=== PATIENT | female | born 1950 | race Caucasian/White ===

== ENCOUNTER 2017-11-29 03:34 | Emergency (ER) | payer MEDICARE, OTHER ==
[2017-11-29] MEDS ORDERED: PROVENTIL 2.5 MG/3 ML NEB IH ONE (03:43)
[2017-11-29] MEDS ORDERED: DUONEB 0.5-3 MG/3 ml Neb IH ONE ×2 (03:47→03:52)
--- NOTE | 2017-11-29 04:05 | ERPHSYRPT ---
- History of Present Illness Time Seen by Provider: 11/29/17 03:50 Source: patient Exam Limitations: clinical condition Physician History: PATIENT WITH A HISTORY OF COPD, REACTIVE AIRWAY DISEASE COMPLAINS OF ACUTE ONSET OF DYSPNEA WHILE WALKING TO BATHROOM IN HOME, DIFFICULTY BREATHING. HAS A PRODUCTIVE COUGH. WAS GIVEN 2 SAMPLE INHALERS BY HER PICK OUT HAND WHICH SHE HAS NOT USED. PATIENT COMPLAINS OF ASSOCIATED DIAPHORESIS AND PALPITATIONS. Timing/Duration: hour(s) Activities at Onset: activity Severity of Dyspnea-Max: severe Severity of Dyspnea-Current: severe Possible Cause: no prior episodes Modifying Factors: Improves With: activity Associated Symptoms: cough, lightheadedness, dizziness Allergies/Adverse Reactions: levofloxacin Adverse Reaction (Verified 11/29/17 07:12) Hives Home Medications: Lisinopril 20 mg PO BID 11/29/17 [History] Propranolol HCl 80 mg PO DAILY 11/29/17 [History] Rosuvastatin Calcium 20 mg PO DAILY 11/29/17 [History] Sertraline HCl 75 mg PO DAILY 11/29/17 [History] - Review of Systems Constitutional: No Fever, No Chills Eyes: No Symptoms Ears, Nose, & Throat: No Symptoms Respiratory: Cough, Dyspnea, Dyspnea on Exertion (ARGUELLES) Cardiac: Palpitations, No Chest Pain, No Edema, No Syncope Abdominal/Gastrointestinal: No Symptoms, No Abdominal Pain, No Nausea, No Vomiting, No Diarrhea Genitourinary Symptoms: No Symptoms, No Dysuria Musculoskeletal: No Symptoms, No Back Pain, No Neck Pain Skin: No Rash Neurological: No Symptoms, No Dizziness, No Focal Weakness, No Sensory Changes Psychological: No Symptoms Endocrine: No Symptoms All Other Systems: Reviewed and Negative - Nursing Vital Signs Nursing Vital Signs: Initial Vital Signs Pulse Rate 109 H 11/29/17 03:48 Respiratory Rate 36 H 11/29/17 03:48 Blood Pressure 180/123 11/29/17 03:48 O2 Sat by Pulse Oximetry 93 L 11/29/17 03:48 Pain Scale Pain Intensity 0 - Physical Exam General Appearance: moderate distress, other (ARRIVES TO EMERGENCY ROOM VIA EMS WITH MODERATE TACHYPNEA, NO AUDIBLE WHEEZES OR RHONCHI.) Ears, Nose, Throat Exam: hearing grossly normal Neck Exam: non-tender, supple, JVD Respiratory Exam: diminished breath sounds, crackles/rales, wheezing, other ( DECREASED AIR EXCHANGE) Cardiovascular/Chest Exam: tachycardia, irregular Abdominal/Gastrointestinal Exam: soft, normal bowel sounds, other Extremity Exam: no pedal edema (2+ PITTING EDEMA) Peripheral Pulses Exam: carotid (L): 2+, femoral (R): 2+, femoral (L): 2+, dorsalis-pedis (R): 2+, dorsalis-pedis (L): 2+ Neurologic Exam: alert, oriented x 3 Skin Exam: normal color SpO2 Interpretation: borderline oxygenation SpO2: 93 Oxygen Delivery: Nasal Cannula - Course EKG Interpreted by Me: RATE, A-fib, NORMAL AXIS (RATE 108) - Radiology Exams Chest X-ray Interpretation: Interpreted by me (SITUS INVERSUS, INTERSTITIAL PULMONARY EDEMA, RIGHT INFRAHILAR INFILTRATE) Ordered Tests: Active Orders 24 hr Category Date Time Status Floor Clerk STAT Care 11/29/17 03:44 Active EKG-ER Only STAT Care 11/29/17 03:43 Active CHEST 1 VIEW (PORTABLE) Stat Exams 11/29/17 03:44 Completed BLOOD CULTURE Stat Lab 11/29/17 04:15 Received CBC W DIFF Stat Lab 11/29/17 04:15 Completed CMP Stat Lab 11/29/17 04:15 Completed D-DIMER QUANTITATION Stat Lab 11/29/17 04:15 Completed Lactic Acid Stat Lab 11/29/17 04:15 Completed Lactic Acid Stat Lab 11/29/17 06:36 Completed MAGNESIUM Stat Lab 11/29/17 04:15 Completed NT PRO BNP Stat Lab 11/29/17 04:15 Completed PROTIME WITH INR Stat Lab 11/29/17 04:15 Completed TROPONIN Q3H Lab 11/29/17 04:15 Completed TROPONIN Q3H Lab 11/29/17 07:15 Completed VENOUS BLOOD GAS Stat Lab 11/29/17 04:15 Completed Respiratory Nebulizer STAT RT 11/29/17 03:52 Completed Respiratory Therapy Assessment DAILY RT 11/29/17 03:57 Completed Medication Summary Discontinued Medications Generic Name Dose Route Start Last Admin Trade Name Freq PRN Reason Stop Dose Admin Albuterol Sulfate 2.5 mg 11/29/17 03:43 Proventil 2.5 Mg/3 Ml Neb IH 11/29/17 03:44 STAT ONE Albuterol/Ipratropium Confirm 11/29/17 03:47 Duoneb 0.5-3 Mg/3 Ml Neb Administered 11/29/17 03:48 Dose 3 ml IH .STK-MED ONE Albuterol/Ipratropium 3 ml 11/29/17 03:52 11/29/17 03:56 Duoneb 0.5-3 Mg/3 Ml Neb IH 11/29/17 03:53 3 ml STAT ONE Administration Diphenhydramine HCl Confirm 11/29/17 05:38 Benadryl 50 Mg/Ml Administered 11/29/17 05:39 Dose 50 mg .ROUTE .STK-MED ONE Diphenhydramine HCl 25 mg 11/29/17 05:42 11/29/17 06:17 Benadryl 50 Mg/Ml IV 11/29/17 05:43 25 mg STAT ONE Administration Enoxaparin Sodium 80 mg 11/29/17 04:26 11/29/17 04:30 Enoxaparin Sodium SQ 11/29/17 04:27 80 mg STAT ONE Administration Enoxaparin Sodium Confirm 11/29/17 04:29 Enoxaparin Sodium Administered 11/29/17 04:30 Dose 80 mg SQ .STK-MED ONE Furosemide 60 mg 11/29/17 04:18 11/29/17 04:31 Furosemide 100mg/10 Ml Vial IV 11/29/17 04:19 60 mg STAT ONE Administration Furosemide Confirm 11/29/17 04:26 Furosemide 100mg/10 Ml Vial Administered 11/29/17 04:27 Dose 100 mg .ROUTE .STK-MED ONE Diltiazem HCl 100 mls @ 10 mls/hr 11/29/17 04:25 11/29/17 04:53 Cardizem Drip 100 Mg/100 Ml D5w IV 12/29/17 04:24 10 mg/hr .Q10H PRN 10 mls/hr HEART RATE/ A-FIB Administration Protocol 10 MG/HR Levofloxacin/Dextrose 500 mg in 100 mls @ 100 mls/hr 11/29/17 05:14 11/29/17 05:19 Levofloxacin 500mg/100ml D5w IV 11/29/17 06:13 100 mls/hr STAT STA 100 mls/hr Administration Levofloxacin/Dextrose Confirm 11/29/17 05:16 Levofloxacin 500mg/100ml D5w Administered 11/29/17 05:17 Dose 500 mg in 100 mls @ ud IV .STK-MED ONE Diltiazem HCl Confirm 11/29/17 04:29 Cardizem Drip 100 Mg/100 Ml D5w Administered 11/29/17 04:30 Dose 100 mls @ ud IV .STK-MED ONE Lab/Rad Data: Laboratory Result Diagrams 11/29/17 04:15 11/29/17 04:15 Laboratory Results 11/29/17 11/29/17 11/29/17 Range/Units 07:15 06:36 04:15 WBC (4.0-10.5) K/mm3 RBC (4.1-5.4) M/mm3 Hgb (12.0-16.0) gm/dl Hct (35-47) % MCV (78-100) fl MCH (26-32) pg MCHC (32-36) g/dl RDW (11.5-14.0) % Plt Count (150-450) K/mm3 MPV (6-9.5) fl Gran % (36.0-66.0) % Eos # (Auto) (0-0.5) Absolute Lymphs (auto) (1.0-4.6) Absolute Monos (auto) (0.0-1.3) Lymphocytes % (24.0-44.0) % Monocytes % (0.0-12.0) % Eosinophils % (0.00-5.0) % Basophils % (0.0-0.4) % Absolute Granulocytes (1.4-6.9) Basophils # (0-0.4) PT (9.95-12.35) SECONDS INR (0.8-3.0) D-Dimer (215-500) ng/mL pO2/FiO2 Ratio % VBG pH (7.32-7.42) VBG pCO2 at Pat Temp (42-55) mm/Hg VBG pO2 at Pat Temp (25-40) mm/Hg VBG HCO3 (22-28) meq/L VBG O2 Sat (Arnie) (95-100) VBG Base Excess (-2.0-2.0) VBG Hemoglobin VBG Carboxyhemoglobin (0.0-6.9) % T HGB POC Potassium (3.5-5.1) Sodium (137-145) mmol/L Potassium (3.5-5.1) mmol/L Chloride (98-107) mmol/L Carbon Dioxide (22-30) mmol/L Anion Gap (5-15) MEQ/L BUN (7-17) mg/dL Creatinine (0.52-1.04) mg/dL Estimated GFR ML/MIN Glucose (74-106) mg/dL Lactic Acid 1.4 (0.4-2.0) Calcium (8.4-10.2) mg/dL Magnesium (1.6-2.3) mg/dL Total Bilirubin (0.2-1.3) mg/dL AST (14-36) U/L ALT (0-35) U/L Alkaline Phosphatase (38-126) U/L Troponin I 0.077 H* 0.045 H* (0.000-0.034) ng/mL NT-Pro-B Natriuret Pep (0-900) pg/mL Serum Total Protein (6.3-8.2) g/dL Albumin (3.5-5.0) g/dL 11/29/17 11/29/17 11/29/17 Range/Units 04:15 04:15 04:15 WBC (4.0-10.5) K/mm3 RBC (4.1-5.4) M/mm3 Hgb (12.0-16.0) gm/dl Hct (35-47) % MCV (78-100) fl MCH (26-32) pg MCHC (32-36) g/dl RDW (11.5-14.0) % Plt Count (150-450) K/mm3 MPV (6-9.5) fl Gran % (36.0-66.0) % Eos # (Auto) (0-0.5) Absolute Lymphs (auto) (1.0-4.6) Absolute Monos (auto) (0.0-1.3) Lymphocytes % (24.0-44.0) % Monocytes % (0.0-12.0) % Eosinophils % (0.00-5.0) % Basophils % (0.0-0.4) % Absolute Granulocytes (1.4-6.9) Basophils # (0-0.4) PT 11.8 (9.95-12.35) SECONDS INR 1.01 (0.8-3.0) D-Dimer 2000 H* (215-500) ng/mL pO2/FiO2 Ratio 32.0 % VBG pH 7.43 H (7.32-7.42) VBG pCO2 at Pat Temp 31 L (42-55) mm/Hg VBG pO2 at Pat Temp 80 H (25-40) mm/Hg VBG HCO3 20.6 L (22-28) meq/L VBG O2 Sat (Arnie) 97.6 (95-100) VBG Base Excess -2.7 L (-2.0-2.0) VBG Hemoglobin 13.7 VBG Carboxyhemoglobin 3.6 (0.0-6.9) % T HGB POC Potassium 3.8 (3.5-5.1) Sodium 140 (137-145) mmol/L Potassium 3.9 (3.5-5.1) mmol/L Chloride 106 (98-107) mmol/L Carbon Dioxide 21 L (22-30) mmol/L Anion Gap 17.1 H (5-15) MEQ/L BUN 25 H (7-17) mg/dL Creatinine 0.89 (0.52-1.04) mg/dL Estimated GFR > 60.0 ML/MIN Glucose 168 H (74-106) mg/dL Lactic Acid 2.3 H (0.4-2.0) Calcium 9.6 (8.4-10.2) mg/dL Magnesium 1.8 (1.6-2.3) mg/dL Total Bilirubin 0.60 (0.2-1.3) mg/dL AST 108 H (14-36) U/L ALT 67 H (0-35) U/L Alkaline Phosphatase 117 (38-126) U/L Troponin I (0.000-0.034) ng/mL NT-Pro-B Natriuret Pep 4500 H (0-900) pg/mL Serum Total Protein 7.6 (6.3-8.2) g/dL Albumin 4.6 (3.5-5.0) g/dL 11/29/17 Range/Units 04:15 WBC 14.0 H (4.0-10.5) K/mm3 RBC 4.06 L (4.1-5.4) M/mm3 Hgb 13.4 (12.0-16.0) gm/dl Hct 40.6 (35-47) % MCV 100.0 (78-100) fl MCH 33.0 H (26-32) pg MCHC 33.0 (32-36) g/dl RDW 13.3 (11.5-14.0) % Plt Count 227 (150-450) K/mm3 MPV 11.5 H (6-9.5) fl Gran % 81.4 H (36.0-66.0) % Eos # (Auto) 0.13 (0-0.5) Absolute Lymphs (auto) 1.87 (1.0-4.6) Absolute Monos (auto) 0.55 (0.0-1.3) Lymphocytes % 13.4 L (24.0-44.0) % Monocytes % 3.9 (0.0-12.0) % Eosinophils % 0.9 (0.00-5.0) % Basophils % 0.4 (0.0-0.4) % Absolute Granulocytes 11.38 H (1.4-6.9) Basophils # 0.05 (0-0.4) PT (9.95-12.35) SECONDS INR (0.8-3.0) D-Dimer (215-500) ng/mL pO2/FiO2 Ratio % VBG pH (7.32-7.42) VBG pCO2 at Pat Temp (42-55) mm/Hg VBG pO2 at Pat Temp (25-40) mm/Hg VBG HCO3 (22-28) meq/L VBG O2 Sat (Arnie) (95-100) VBG Base Excess (-2.0-2.0) VBG Hemoglobin VBG Carboxyhemoglobin (0.0-6.9) % T HGB POC Potassium (3.5-5.1) Sodium (137-145) mmol/L Potassium (3.5-5.1) mmol/L Chloride (98-107) mmol/L Carbon Dioxide (22-30) mmol/L Anion Gap (5-15) MEQ/L BUN (7-17) mg/dL Creatinine (0.52-1.04) mg/dL Estimated GFR ML/MIN Glucose (74-106) mg/dL Lactic Acid (0.4-2.0) Calcium (8.4-10.2) mg/dL Magnesium (1.6-2.3) mg/dL Total Bilirubin (0.2-1.3) mg/dL AST (14-36) U/L ALT (0-35) U/L Alkaline Phosphatase (38-126) U/L Troponin I (0.000-0.034) ng/mL NT-Pro-B Natriuret Pep (0-900) pg/mL Serum Total Protein (6.3-8.2) g/dL Albumin (3.5-5.0) g/dL - Progress Progress: improved Air Movement: good Progress Note: 11/29/17 04:42 PATIENT ADMINISTERED DUO NEB TX AND IV SOLUMEDROL 125MG ENROUTE TO EMERGENCY ROOM VIA EMS ADMINISTERED ALBUTEROL UNIT DOSE, LASIX 60MG IV, CARDIZEM INFUSION 10MG/HR. UNABLE TO PLACE PATIENT ON SEPSIS PROTOCOL TACHYPNEA AND TACHYCARDIA DUE TO ACUTE CONGESTIVE HEART FAILURE 11/29/17 05:15 ONSET OF HIVES REDNESS RIGHT FOREARM AFTER IV LEVAQUIN 500MG WHICH WAS DISCONTINUED, IV BENADRYL 25MG GIVEN 11/29/17 05:49 Blood Culture(s) Obtained: Yes Antibiotics given: Yes Discussed with DrJudy: Other (DISCUSSED WITH TYRONE VEGA AT 0524 ACCEPTS TRANSFER TO [facility] VIA [facility]) - Departure Time of Disposition: 07:25 Departure Disposition: Transfer Clinical Impression: ACUTE DYSPNEA, ACUTE CONGESTIVE HEART FAILURE, NEW ONSET ATRIAL FIBRILLATION, EXACERBATION COPD Condition: Stable Critical Care Time: Yes Critical Care Time(excluding separately billable procedures): ___ minutes (50) Referrals: DOCTOR,NO FAMILY [Primary Care Provider] -
[2017-11-29] MEDS ORDERED: Furosemide 100mg/10 ml Vial IV ONE (04:18)
[2017-11-29] MEDS ORDERED: CARDIZEM DRIP 100 MG/100 ML D5W 100 ML IV PRN (04:25)
[2017-11-29] MEDS ORDERED: Furosemide 100mg/10 ml Vial ONE (04:26)
[2017-11-29] MEDS ORDERED: ENOXAPARIN SODIUM SQ ONE ×2 (04:26→04:29)
[2017-11-29] MEDS ORDERED: CARDIZEM DRIP 100 MG/100 ML D5W 100 ML IV ONE (04:29)
[2017-11-29 04:37] LABS: Lactic Acid 2.3 (0.4-2.0); VBG BASE EXCESS -2.7 (-2.0-2.0); VBG CARBOXYHEMOGLOBIN 3.6 % T HGB (0.0-6.9); VBG HCO3- 20.6 meq/L (22-28); VBG HEMOGLOBIN 13.7; VBG O2 SATURATION 97.6 (95-100); VBG PCO2 31 mm/Hg (42-55); VBG PO2 80 mm/Hg (25-40); VBG POTASSIUM 3.8 (3.5-5.1); VBG pH 7.43 (7.32-7.42)
[2017-11-29 04:39] LABS: BASOPHIL % 0.4 % (0.0-0.4); Basophil (Absolute #) 0.05 (0-0.4); Eosinophil % 0.9 % (0.00-5.0); Eosinophil (Absolute #) 0.13 (0-0.5); Granulocyte Absolute (ANC) 11.38 (1.4-6.9); Granulocytes % 81.4 % (36.0-66.0); Hematocrit 40.6 % (35-47); Hemoglobin 13.4 gm/dl (12.0-16.0); Lymphocyte (Absolute #) 1.87 (1.0-4.6); Lymphocytes % 13.4 % (24.0-44.0); Mean Platelet Volume 11.5 fl (6-9.5); Monocyte (Absolute #) 0.55 (0.0-1.3); Monocytes % 3.9 % (0.0-12.0); Platelet Count 227 K/mm3 (150-450); Red Blood Count 4.06 M/mm3 (4.1-5.4); Red Cell Distribution Width 13.3 % (11.5-14.0)
[2017-11-29 04:41] LABS: INR 1.01 (0.8-3.0)
[2017-11-29 04:55] LABS: ALBUMIN 4.6 g/dL (3.5-5.0); ALKALINE PHOSPHATASE 117 U/L (38-126); ANION GAP 17.1 MEQ/L (5-15); BLOOD UREA NITROGEN 25 mg/dL (7-17); CHLORIDE 106 mmol/L (98-107); Calcium 9.6 mg/dL (8.4-10.2); Carbon Dioxide 21 mmol/L (22-30); Creatinine 1 0.89 mg/dL (0.52-1.04); Glucose 168 mg/dL (74-106); NT PRO BNP 4500 pg/mL (0-900); Potassium 3.9 mmol/L (3.5-5.1); SGOT/AST 108 U/L (14-36); SGPT/ALT 67 U/L (0-35); SODIUM 140 mmol/L (137-145); Total Protein 7.6 g/dL (6.3-8.2)
[2017-11-29] MEDS ORDERED: Levofloxacin 500MG/100ML D5W 500 MG/100 ML BAG IV STA (05:14)
[2017-11-29] MEDS ORDERED: Levofloxacin 500MG/100ML D5W 500 MG/100 ML BAG IV ONE (05:16)
[2017-11-29] MEDS ORDERED: BENADRYL 50 MG/ML ONE (05:38)
[2017-11-29] MEDS ORDERED: BENADRYL 50 MG/ML IV ONE (05:42)
--- NOTE | 2017-11-29 07:06 | XRAY ---
Indication: Dyspnea. Comparison: None Portable chest demonstrates cardiomegaly, interstitial edema, and tiny bibasilar effusions possibly mild/early cardiac decompensation. Query right infrahilar infiltrate/atelectasis. Bony thorax intact.
[2017-11-29 07:25] VITALS: BP 151/83; PULSE 91
[2017-11-29 21:24] VITALS: O2SAT 93
== END 2017-11-29 07:47 | disposition short-term general hospital (02) ==
LOC: ED 03:34
DX: I50.9 Heart failure, unspecified (principal); J44.1 Chronic obstructive pulmonary disease with (acute) exacerbation; I48.91 Unspecified atrial fibrillation; R06.00 Dyspnea, unspecified; R42 Dizziness and giddiness; L27.0 Generalized skin eruption due to drugs and medicaments taken internally; T36.8X5A Adverse effect of other systemic antibiotics, initial encounter; Z79.899 Other long term (current) drug therapy
CPT/HCPCS: 36415; 71045; 80053; 82805; 83605; 83735; 83880; 84484; 85025; 85379; 85610; 87040; 93005; 93041; 94640; 96365; 96367; 96372; 96374; 99284; J1200; J1650; J1940; J1956; A9270-GY